=== PATIENT | female | born 1985 | race Caucasian/White ===

== ENCOUNTER 2018-06-24 01:35 | Emergency (ER) | payer BC ==
[~2018-06-24] VITALS: Ht 170.2 cm; Wt 99.3 kg
[~2018-06-24 01:35] MED LIST: GABA-531 PO; QUET200T PO
[2018-06-24 01:44] VITALS: BP_SYST 108
[2018-06-24] MEDS ORDERED: HYDROmorphone 1 MG INJ. 1 MG/ML AMPUL IM ONE (04:30)
[2018-06-24 05:00] VITALS: BP_SYST 112
== END 2018-06-24 05:00 | disposition home or self-care (01) ==
LOC: SED 01:35
DX: T81.89XA Other complications of procedures, not elsewhere classified, initial encounter (principal); M25.561 Pain in right knee; J44.9 Chronic obstructive pulmonary disease, unspecified; Z88.0 Allergy status to penicillin; Z88.1 Allergy status to other antibiotic agents; Z91.010 Allergy to peanuts; Z91.013 Allergy to seafood; Z88.8 Allergy status to other drugs, medicaments and biological substances; Y83.8 Other surgical procedures as the cause of abnormal reaction of the patient, or of later complication, without mention of misadventure at the time of the procedure; Y92.89 Other specified places as the place of occurrence of the external cause
CPT/HCPCS: 29505; 93971; 96372; 99284; J1170

== ENCOUNTER 2018-08-30 22:55 | Emergency (ER) | payer BC ==
[~2018-08-30] VITALS: Ht 167.6 cm; Wt 131.5 kg
[2018-08-30 23:05] VITALS: BP_SYST 159
[2018-08-30] MEDS ORDERED: MORP30TA PO (23:18)
[2018-08-30] MEDS ORDERED: MORP60CP14 PO (23:21)
[2018-08-30] MEDS ORDERED: CYCL-10 PO (23:22)
[2018-08-30] MEDS ORDERED: KETAMINE 30 MG/3 ML SYRINGE IVP ONE (23:30)
[2018-08-31] MEDS ORDERED: NACL 0.9% 1,000 ML IV ONE
[2018-08-31] MEDS ORDERED: LORazepam 2 MG/ML VIAL (FOR ER USE) IVP ONE
[2018-08-31] MEDS ORDERED: ONDANSETRON HCL 4 MG/2 ML VIAL IVP ONE (00:15)
[2018-08-31 01:33] VITALS: BP_SYST 116
== END 2018-08-31 01:33 | disposition home or self-care (01) ==
LOC: SED 22:55
DX: R51 Headache (principal); R03.0 Elevated blood-pressure reading, without diagnosis of hypertension; J44.9 Chronic obstructive pulmonary disease, unspecified; Z88.0 Allergy status to penicillin; Z88.1 Allergy status to other antibiotic agents; Z88.8 Allergy status to other drugs, medicaments and biological substances; Z91.010 Allergy to peanuts; Z91.013 Allergy to seafood
CPT/HCPCS: 70450; 96361; 96374; 96375; 99284; J2405; J7030

== ENCOUNTER 2019-03-07 19:04 | Emergency (ER) | payer BC ==
[~2019-03-07] VITALS: Ht 170.2 cm; Wt 91.6 kg
[~2019-03-07 19:04] MED LIST changes: +CYCL-10 PO; +MORP30TA PO; +MORP60CP14 PO
[2019-03-07 19:16] VITALS: BP_SYST 121
[2019-03-07 20:40] LABS: BASOPHILS % (AUTO) 0.2 % (0.0-2.0); EOSINOPHILS # (AUTO) 0.1 K/uL (0.0-0.4); HEMATOCRIT 38.4 % (36-48); HEMOGLOBIN 12.1 g/dL (12.0-16.0); LYMPHOCYTES # (AUTO) 2.5 K/uL (1.0-5.5); LYMPHOCYTES % (AUTO) 48.1 % (20.5-51.5); MEAN CORPUSCULAR HEMOGLOBIN 25 pg (27-31); MEAN CORPUSCULAR HGB CONC 32 % (32-36); MEAN CORPUSCULAR VOLUME 78 fL (79.0-98.0); MONOCYTES # (AUTO) 0.4 K/uL (0.0-1.0); MONOCYTES % (AUTO) 7.3 % (1.7-9.3); NEUTROPHILS # (AUTO) 2.2 K/uL (1.8-7.7); NEUTROPHILS % (AUTO) 42.4 % (40.0-70.0); PLATELET COUNT (AUTO) 225 K/uL (130-430); RED BLOOD CELL COUNT(AUTO) 4.94 MIL/uL (4.2-6.2); RED CELL DISTRIBUTION WIDTH 16.4 % (9.0-15.0); WHITE BLOOD COUNT (AUTO) 5.1 K/uL (4.8-10.8)
[2019-03-07 21:06] LABS: CALCIUM 8.8 mg/dL (8.4-11.0); CREATININE 0.82 mg/dL (0.55-1.30); POTASSIUM 3.8 mmol/L (3.5-5.1)
[2019-03-07 21:18] LABS: INR 0.9 (0.8-1.2); PROTHROMBIN TIME 9.5 SECS (9.5-12.5)
[2019-03-07 21:19] LABS: ALBUMIN 3.4 g/dL (3.4-4.8); TOTAL BILIRUBIN 0.4 mg/dL (0.0-1.0)
[2019-03-07 21:34] VITALS: BP_SYST 121
== END 2019-03-07 21:34 | disposition home or self-care (01) ==
LOC: SED 19:04
DX: I89.0 Lymphedema, not elsewhere classified (principal); J44.9 Chronic obstructive pulmonary disease, unspecified; Z88.0 Allergy status to penicillin; Z88.1 Allergy status to other antibiotic agents; Z88.8 Allergy status to other drugs, medicaments and biological substances; Z79.899 Other long term (current) drug therapy
CPT/HCPCS: 36415; 80053; 85025; 85610-TC; 85730-TC; 93971; 99284

== ENCOUNTER 2019-10-15 11:20 | Emergency (ER) | payer BC ==
[~2019-10-15] VITALS: Ht 170.2 cm; Wt 93.4 kg
[2019-10-15 11:20] VITALS: BP_SYST 128
--- NOTE | 2019-10-15 11:20 | NUR ---
Patient triaged and placed in waiting room. VSS and patient appears in no acute distress at this time. Accompanied by [employer], awaiting available bed, and MD notified of need for MSE.
--- NOTE | 2019-10-15 13:35 | NUR ---
PT DECIDED TO LEAVE WITHOUT BEING SEEN
== END 2019-10-15 13:35 | disposition left against medical advice (07) ==
LOC: SED 11:20
DX: T78.40XA Allergy, unspecified, initial encounter (principal); Z53.21 Procedure and treatment not carried out due to patient leaving prior to being seen by health care provider; X58.XXXA Exposure to other specified factors, initial encounter

== ENCOUNTER 2022-07-30 13:09 | Inpatient (IN) | payer BC ==
[~2022-07-30] VITALS: Ht 170.2 cm; Wt 85.3 kg
[~2022-07-30 13:09] MED LIST changes: -CYCL-10 PO; +CYCL10TA24 PO
[2022-07-30 13:40] VITALS: BP_SYST 132
[2022-07-30] MEDS ORDERED: PHE25 PO (14:03)
[2022-07-30] MEDS ORDERED: FAMO40TA71 PO (14:03)
[2022-07-30] MEDS ORDERED: VALA500T PO (14:03)
[2022-07-30] MEDS ORDERED: PRO40 PO (14:03)
[2022-07-30] MEDS ORDERED: ALBMDI INH (14:03)
[2022-07-30] MEDS ORDERED: ADAL80PE2 (14:03)
[2022-07-30] MEDS ORDERED: LEVO100T PO (14:03)
[2022-07-30] MEDS ORDERED: NITR1PAT74 TD (14:03)
[2022-07-30] MEDS ORDERED: ISOS30TA85 PO (14:06)
[2022-07-30] MEDS ORDERED: LEVO112T2 PO (14:06)
[2022-07-30] MEDS ORDERED: iohexoL 350 mgI/mL, 100 ML INFUS..BTL IV ONE (14:59)
[2022-07-30 15:00] LABS: BASOPHILS % (AUTO) 0.2 % (0.0-2.0); EOSINOPHILS # (AUTO) 0.1 K/uL (0.0-0.4); EOSINOPHILS % (AUTO) 1.3 % (0.0-4.0); HEMATOCRIT 39.4 % (36-48); HEMOGLOBIN 13.3 g/dL (12.0-16.0); LYMPHOCYTES # (AUTO) 1.6 K/uL (1.0-5.5); LYMPHOCYTES % (AUTO) 24.1 % (20.5-51.5); MEAN CORPUSCULAR HEMOGLOBIN 30 pg (27-31); MEAN CORPUSCULAR HGB CONC 34 % (32-36); MEAN CORPUSCULAR VOLUME 88 fL (79.0-98.0); MONOCYTES # (AUTO) 0.3 K/uL (0.0-1.0); NEUTROPHILS # (AUTO) 4.7 K/uL (1.8-7.7); NEUTROPHILS % (AUTO) 69.4 % (40.0-70.0); PLATELET COUNT (AUTO) 278 K/uL (130-430); RED CELL DISTRIBUTION WIDTH 14.2 % (9.0-15.0); WHITE BLOOD COUNT (AUTO) 6.8 K/uL (4.8-10.8)
[2022-07-30 15:12] LABS: CALCIUM 8.4 mg/dL (8.4-11.0); CREATININE 1.16 mg/dL (0.55-1.30); POTASSIUM 3.9 mmol/L (3.5-5.1)
[2022-07-30 15:17] LABS: ALBUMIN 3.4 g/dL (3.4-4.8); TOTAL BILIRUBIN 0.7 mg/dL (0.0-1.0)
[2022-07-30 15:35] LABS: BILIRUBIN,URINE 1+ (NEGATIVE); BLOOD, URINE 1+ (NEGATIVE); COLOR,URINE BROWN (YELLOW); GLUCOSE,URINE NEGATIVE (NEGATIVE); KETONES,URINE TRACE (NEGATIVE); LEUKOCYTE ESTERASE ,URINE NEGATIVE (NEGATIVE); NITRITE, URINE NEGATIVE (NEGATIVE); PROTEIN URINE NEGATIVE (NEGATIVE)
[2022-07-30 15:40] LABS: CLARITY/URINE SLIGHTLY HAZY (CLEAR)
[2022-07-30 15:44] LABS: BACTERIA,URINE FEW /HPF (None Seen); MUCUS,URINE 2+ /LPF (None Seen); WBC,URINE 0-3 /HPF (0-3)
[2022-07-30] MEDS ORDERED: ONDANSETRON HCL 4 MG/2 ML VIAL ONE (17:07)
[2022-07-30] MEDS ORDERED: ONDANSETRON 4 MG ODT TAB PO ONE (17:15)
[2022-07-30 18:29] VITALS: BP_SYST 132
[2022-07-30] MEDS ORDERED: NITROGLYCERIN 1 INCH (GM) OINT. TP ONE (23:30)
[2022-07-30] MEDS ORDERED: MORPHINE 4 MG INJ. 4 MG/ML VIAL IVP ONE (23:30)
== END 2022-07-30 18:29 | disposition home or self-care (01) | DRG 392 ==
LOC: SED 13:09 → STU 15:25
PROVIDERS: ADMIT Internal Medicine; ATTEND Internal Medicine
DX: R10.9 Unspecified abdominal pain (principal); R07.9 Chest pain, unspecified; Z20.822 Contact with and (suspected) exposure to COVID-19; Z88.8 Allergy status to other drugs, medicaments and biological substances; Z88.1 Allergy status to other antibiotic agents; Z88.0 Allergy status to penicillin; Z91.013 Allergy to seafood; Z79.899 Other long term (current) drug therapy
CPT/HCPCS: 36415; 71275; 76376; 80053; 81000; 83880; 84484; 85025; 85379; 93005; 99285; G0378; J2405; Q0162; Q9967